=== PATIENT | female | born 1955 | race Asian ===

== ENCOUNTER 2024-04-25 09:37 | Emergency (ER) | payer MEDICARE, SELFPAY ==
--- NOTE | ~2024-04-25 | CT_ITS ---
EXAMINATION: CT ANGIOGRAM HEAD AND NECK CLINICAL INFORMATION: Left arm numbness x3-4 days, word finding difficulties. COMPARISON: None available. TECHNIQUE: Noncontrast axial imaging of the head was performed. This was followed by test bolus sequences and head and neck intravenous bolus administration 70 mL of Omnipaque 350. Helical imaging was performed in the axial plane from the aortic arch to the skull vertex. A [address] head was also obtained. The data was processed at the automation technologist's workstation for generation of MIP sequences. Angled MIPs and volume rendered reformatted images were also generated at an offline 3D workstation. Stenoses are assessed in accordance with NASCET criteria unless otherwise indicated. This CT examination was performed using dose optimization techniques as appropriate, variously including the following: *Automated exposure control *Adjustment of mA and/or kV according to patient size (this includes techniques or standardized protocols for targeted exams where dose is matched to indication/reason for exam; i.e. extremities or head) *Use of iterative reconstruction technique FINDINGS: NONCONTRAST HEAD CT: There is no evidence of intracranial hemorrhage or extra-axial fluid collection. There is no mass effect, or edema. No CT evidence of acute territorial infarct. Ventricles, sulci, and cisterns are normal in size and configuration for patient age. No hydrocephalus. No midline shift. Negative hyperdense MCA sign. Negative insular ribbon sign. No white matter abnormalities. Normal pituitary. Globes and orbital contents image normally. No extracranial soft tissue abnormalities. Moderate mucous retention cyst in the dependent right maxillary antrum. There is otherwise mild to moderate scattered mucosal thickening both maxillary sinuses and more significantly throughout both ethmoid sinuses. No suspicious bony abnormalities. There are no acute fractures evident. NECK CTA: -AORTIC ARCH: Normal in caliber. Normal three-vessel branching pattern. -GREAT VESSEL ORIGINS: Widely patent. Mild stenosis of the proximal left subclavian artery due to mixed plaque. -RIGHT COMMON CAROTID ARTERY: Normal in course and caliber to the bifurcation. -CERVICAL RIGHT INTERNAL CAROTID ARTERY: Normal opacification without focal stenosis or occlusion. -LEFT COMMON CAROTID ARTERY: Normal in course and caliber to the bifurcation. -CERVICAL LEFT INTERNAL CAROTID ARTERY: Normal opacification without focal stenosis or occlusion. -CERVICAL RIGHT VERTEBRAL ARTERY: Nondominant. Normal origin. Normal in course and caliber into the skull base. -CERVICAL LEFT VERTEBRAL ARTERY: Dominant. Mild stenosis at the origin due to soft plaque. Otherwise normal in course and caliber into the skull base. OTHER, SOFT TISSUES: -Normal thyroid. -No adenopathy or mass. -Superior mediastinal structures appear grossly normal. -No active disease in the lung apices. CTA OF THE BRAIN: -INTRACRANIAL INTERNAL CAROTID ARTERIES: Calcific atherosclerotic disease of the intracranial internal carotid arteries without occlusion or flow-limiting stenosis. -RIGHT ANTERIOR CEREBRAL ARTERY: Normal A1 segment. Normal arborization of the distal segments. -LEFT ANTERIOR CEREBRAL ARTERY: Normal A1 segment. Normal arborization of distal segments. -ANTERIOR COMMUNICATING ARTERY: Normal. -RIGHT MIDDLE CEREBRAL ARTERY: Normal M1 segment of the MCA without focal stenosis or occlusion. Normal arborization of the distal segments. -LEFT MIDDLE CEREBRAL ARTERY: Normal M1 segment of the MCA without focal stenosis or occlusion. Normal arborization of the distal segments. -RIGHT VERTEBRAL ARTERY V4: Normal in course and caliber. -LEFT VERTEBRAL ARTERY V4: Normal in course and caliber. -BASILAR ARTERY: Normal without focal stenosis or occlusion. Normal appearance of the proximal superior cerebellar arteries. Normal basilar tip. -RIGHT POSTERIOR CEREBRAL ARTERY: Normal P1 segment. Normal opacification of the distal MINE [employer]ODUCTION ENGINEER segments. -LEFT POSTERIOR CEREBRAL ARTERY: Normal P1 segment. Normal opacification of the distal MINE PRODUCTION ENGINEER segments. -POSTERIOR COMMUNICATING ARTERIES: Diminutive bilaterally but present. Normal opacification of the superior sagittal, straight, transverse, and sigmoid sinuses. No venous thrombosis. CT/CT angio head neck IMPRESSION: NONCONTRAST HEAD CT: 1. No intracranial hemorrhage, mass effect, or acute territorial infarct. 2. Bilateral maxillary and more significantly ethmoid paranasal sinus disease. CTA NECK: 1. No high-grade or flow limiting stenosis of the vertebral or internal carotid arteries. There is no vascular dissection. 2. There is a mild stenosis at the origin of the left vertebral artery. 3. There is a mild left subclavian artery stenosis after the origin. CTA HEAD: 1. There is no stenosis, dissection, occlusion, or aneurysm in the major intracranial arterial circulation. 2. There is no venous sinus thrombosis. Electronically signed by: Franco Smith MD 04/25/2024 01:56 PM EDT
--- NOTE | ~2024-04-25 | XR_ITS ---
EXAMINATION: XR CHEST CLINICAL INFORMATION: chest pain COMPARISON: None available. TECHNIQUE: 2 views of the chest were obtained. FINDINGS: No consolidation, pleural effusion or pneumothorax. Cardiomediastinal silhouette size is normal. Calcified plaque Arctic arch. Mild multilevel thoracic spondylosis. Calcifications overlapping the right lower soft tissue neck. XR/XR chest 2V IMPRESSION: No acute airspace disease. Electronically signed by: Tayo Mayes MD 04/25/2024 11:39 AM EDT
[2024-04-25 09:48] VITALS: BP 145/66; PULSE 90; RESP 19; TEMP 36.6; O2SAT 98; BMI 21.9
--- NOTE | 2024-04-25 10:36 | ECG_ITS ---
Test Reason : numbness Blood Pressure : */* mmHG Vent. Rate : 64 BPM Atrial Rate : 64 BPM P-R Int : 180 ms QRS Dur : 78 ms QT Int : 418 ms P-R-T Axes : 66 9 51 degrees QTcB Int : 431 ms Normal sinus rhythm Normal ECG No previous ECGs available Referred By: Paul Benjamin Electronically Signed By: SUKH FALL
--- NOTE | 2024-04-25 10:38 | ED.NEUROSD ---
HPI - Neuro Symptoms/Deficit General Chief Complaint: Stroke Stated Complaint: numbness arms legs multiple issues Time Seen by Provider: 04/25/24 10:23 Source: patient and family Mode of arrival: ambulatory Limitations: no limitations History of Present Illness HPI Narrative: 68 year old female PMH: Asthma hypothyroidism GERD who presents emergency room after going to urgent care for multiple complaints. Patient has a rapid almost pressured speech changing story and complaint quite often. Patient states she started with several days of some numbness along her lateral left arm as well as sometimes to her leg but she is still a bit ambulate and walk she will states she has word-finding difficulty but is speaking and fluently and rapidly at this time. Patient states she is normally from [place] but is here visiting her they have a long distance relationship where they live apart for 6 months at a time. She denies any falls or injuries she states at times she has chest pain at times she has abdominal pain the time she has headaches but denies having no symptoms at this time. Patient states she has chronic nausea but no vomiting she would eat dinner last night. She denied any breakfast went to an urgent care and was sent here for further evaluation Related Data Previous Rx's ?Medication ?Instructions ?Recorded acetaminophen 325 mg tablet 325 mg PO QID PRN pain #90 tabs 04/25/24 (Tylenol) benzonatate 100 mg capsule 100 mg PO BID PRN cough #20 caps 04/25/24 famotidine 20 mg tablet (Pepcid) 20 mg PO BID PRN abdominal 04/25/24 discomfort #60 tabs ondansetron 4 mg disintegrating 4 mg PO Q6H #14 tabs 04/25/24 tablet Allergies Allergy/AdvReac Type Severity Reaction Status Date / Time aspirin [ASA] Allergy Unknown Verified 04/25/24 09:53 naproxen [From Naprosyn] Allergy Unknown Verified 04/25/24 09:53 Review of Systems Review of Systems: Review of systems: General: Patient denies any fever chills recent illness or falls Musculoskeletal: Denies back pain or body aches or other injuries HEENT: denies headache, runny nose, ear pain Respiratory: Cough at night denies shortness of breath, Cardiovascular: chest pain no palpitations : denies dysuria, frequency Abdomen: nausea no vomiting denies abdominal pain Extremities: no swelling, no pain Skin: no diaphoresis Yes all other systems are reviewed and are negative [facility] Social History Social History Advance Directives: No Advance Directives Information Provided: Yes Physical Exam Vital Signs: Vital Signs: Last Vital Signs Temp 97.8 F 04/25/24 11:58 Pulse 64 04/25/24 11:58 Resp 18 04/25/24 11:58 BP 131/62 04/25/24 11:58 Pulse Ox 97 04/25/24 11:58 O2 Del Method Room Air 04/25/24 11:58 BMI result Body Mass Index 21.9 Neurological exam: CN II- XII tested. Patient is alert and oriented to person place and time. Patient has no dysphagia or dysarthia, denies good vision in all four vision peter no nystagmus on exam, good strength to upper and lower extremities with normal reflexes to brachioradialis, wrist, patella and achilles. Negative romberg, good finger to nose and heel to jaquez. Patient ambulate the room I had her walk on her heels and toes patient was able to do a squat without any difficulty General: Well-appearing well-nourished in no signs of distress HEENT: Normocephalic atraumatic Neck: No signs of JVD, no masses no tenderness or lymphadenopathy Cardiovascular: Regular rate and rhythm Respiratory: Clear to auscultation bilaterally Abdomen: Soft nontender no masses Extremities: Normal pedal pulses no signs of edema Skin: Dry warm no rashes Back: No tenderness full ROM Course Course Course Narrative: Patient is given GI cocktail as well as fluids and medications for pain. Patient states all the numbness has resolved she never had any word-finding difficulties and is feeling much better. She is okay with the plan to go home I will discharge home with a stent. Medications Administered Discontinued Medications Generic Name Dose Route Start Last Admin Trade Name Freq PRN Reason Stop Dose Admin Al Hydroxide/Mg Hydroxide 30 ml 04/25/24 10:35 04/25/24 11:09 Magnesium Hydrox/Alum Hydrox 30 Ml Oral.Susp PO 04/25/24 10:36 30 ml ONCE ONE Administration Famotidine 20 mg 04/25/24 10:35 04/25/24 11:09 Famotidine/Pf 20 Mg/2 Ml Vial IVPUSH 04/25/24 10:36 20 mg ONCE ONE Administration Sodium Chloride 1,000 mls @ 999 mls/hr 04/25/24 10:45 04/25/24 12:10 Ns IV 04/25/24 11:45 Infused .Q1H1M DEANN Infusion Iohexol 100 ml 04/25/24 12:59 04/25/24 13:01 Iohexol 350 Mg/Ml 100 Ml Infus..Btl IV 04/25/24 13:00 70 ml ONCE ONE Administration Medical Decision Making Medical Decision Making [facility] Narrative: Unfortunately patient has never been here before she does have history of hypothyroidism but has no symptoms consistent with that she is complaining of numbness to left side of her arm but on exam she has normal sensation normal strength she also complains of difficulty with speech but has normal speech speaking full sentences if anything the speech is rapid. Patient was able to squat and walk around the room I do not think she is having acute stroke with a plethora of symptoms the fact that is without for 4 days I will send the patient for a CT to make sure there was no subacute infarct on CT scan I will check labs I will get a noncontrast CT before getting the angiogram I will give the patient fluids check electrolytes and reassess. Differential Diagnosis Differential Diagnoses: The differential diagnosis associated with the presentation includes TIA CVA electrolyte abnormality weakness UTI COVID flu RSV body aches dehydration chronic nausea Lab Data [facility] Lab Attestation statement: I reviewed the patient's lab results. 04/25/24 11:02 04/25/24 11:02 Labs: Lab Results 04/25/24 04/25/24 Range/Units 11:02 11:49 WBC 3.9 L (4.8-10.8) X10*3/uL RBC 3.98 L (4.20-5.50) X10*6/uL Hgb 13.0 (12.0-16.0) g/dl Hct 38.9 (37.0-47.0) % MCV 97.7 (80.0-98.0) fL MCH 32.7 (27.0-33.0) pg MCHC 33.4 (31.0-35.0) g/dl RDW 12.5 (11.0-16.0) % Plt Count 151 L (160-400) X10*3/uL MPV 10.1 (9.4-12.3) fL Immature Gran % (Auto) 0.3 (0.0-0.4) % Neut % (Auto) 60.2 (45-73) % Lymph % (Auto) 25.0 (20-40) % Harmon % (Auto) 7.5 (2-11) % Eos % (Auto) 6.2 H (0-4) % Baso % (Auto) 0.8 (0-2) % Lymph # (Auto) 1.0 L (1.2-4.9) X10*3/uL Harmon # (Auto) 0.3 (0.1-1.2) X10*3/uL Eos # (Auto) 0.2 (0.0-0.4) X10*3/uL Baso # (Auto) 0.0 (0.0-0.2) X10*3/uL Abs Immat Gran (auto) 0.01 (0.00-0.03) X10*3/uL Absolute Neuts (auto) 2.3 (2.0-8.3) x10*3/uL Absolute Nucleated RBC 0.000 (0.0-0.012) X10*3/uL Nucleated RBC % (auto) 0.0 (0.0-0.2) /100WBC PT 11.6 (10.9-12.4) SEC INR 1.0 (0.9-1.1) APTT 32.9 (26.0-36.8) SEC Sodium 140 (135-145) mmol/L Potassium 4.2 (3.3-5.1) mmol/L Chloride 111 H (96-108) mmol/L Carbon Dioxide 23 (22-29) mmol/L Anion Gap 10 L (12-20) BUN 17 H (9-16) mg/dL Creatinine 0.62 (0.5-1.4) mg/dL Estim Creat Clear Calc 65.5 Estimated GFR > 60 Random Glucose 92 (60-115) mg/dL Calcium 8.7 (8.4-10.2) mg/dL Magnesium 2.2 (1.6-2.6) mg/dL Total Bilirubin 0.5 (0.0-1.0) mg/dL Direct Bilirubin 0.2 (0.0-0.5) mg/dL AST 30 (5-31) U/L ALT 21 (0-31) U/L Alkaline Phosphatase 51 (39-117) U/L Troponin I High Sens < 2.7 (<3.5-17.0) ng/L Total Protein 7.1 (6.5-8.0) g/dL Albumin 3.9 (3.5-5.0) g/dL Lipase 28 (8-78) U/L Urine Color Yellow Urine Appearance Clear Urine pH 7.0 (5.0-9.0) Ur Specific Gordon <= 1.005 (1.005-1.025) Urine Protein Negative (Neg-Trace) mg/dL Urine Glucose (UA) Negative (Negative) mg/dL Urine Ketones Negative (Negative) mg/dL Urine Blood Negative (Negative) Urine Nitrite Negative (Negative) Ur Leukocyte Esterase Negative (Negative) Influenza Type A (PCR) NEGATIVE (Negative) Influenza Type B (PCR) NEGATIVE (Negative) RSV RNA Qual (PCR) NEGATIVE (Negative) SARS-CoV-2 RNA (RT-PCR) NEGATIVE (Negative) Independent Interpretation I performed an independent interpretation of an: EKG Interpretation: Rate 64 normal sinus rhythm normal intervals no signs of ischemia no previous for comparison interpreted by me NIH Stroke Scale Internal: Initial- Upon Arrival Time: 10:41 Level of Consciousness: Alert Level of Consciousness Questions: Answers both questions correctly Level of Consciousness Commands: Performs both tasks correctly Best Gaze: Normal Visual: No visual loss Facial Palsy: Normal Motor Arm (Right): No drift Motor Arm (Left): No drift Motor Leg (Right): No drift Motor Leg (Left): No drift Limb Ataxia: Absent Sensory: Normal Best Language: No aphasia Dysarthia: Normal Extinction and Inattention: No abnormality Score: 0 Discharge Plan Discharge Clinical Impression: Paresthesia and pain of left extremity, Acid reflux, Cough Patient Disposition: Home, Self-Care Instructions: Chronic Cough (ED), Indigestion (ED), Paresthesia (ED) Additional Instructions: You were seen today for left arm and left leg numbness. You also seen for word-finding difficulties cough and epigastric pain. You had a complete workup including CT head and neck as well as labs swabs for COVID flu RSV which were all normal. Your symptoms did resolve with medications. I will send you home with similar medications if you have any other concerns please return to the ER. Prescriptions: New acetaminophen [Tylenol] 325 mg tablet 325 mg PO QID PRN (Reason: pain) Qty: 90 0RF famotidine [Pepcid] 20 mg tablet 20 mg PO BID PRN (Reason: abdominal discomfort) Qty: 60 0RF benzonatate 100 mg capsule 100 mg PO BID PRN (Reason: cough) Qty: 20 0RF ondansetron 4 mg tablet,disintegrating 4 mg PO Q6H Qty: 14 0RF Print Language: Liberian
[2024-04-25] MEDS: 0.9 % Sodium Chloride 1,000 ML 999 ML IV (11:06)
--- OUTSIDE RECORDS SUMMARY | 2024-04-25 11:07 | XMS_ITS | Referral Summary ---
Author Organization [facility] Address [address] [place] [address] Care Team Providers Care Letterpress Printing Machinist Name Role Phone Dada Dobbins MD Primary Care Provider [phone] Allergies Active Allergy Reactions Criticality Noted Date Comments Celecoxib Unknown 12/09/2010 Medications PREDNISONE PO take by mouth. Active VITAMIN B COMPLEX (B COMPLEX PO) take by mouth. Active multivitamin PO tablet take 1 Tablet by mouth daily. Active azathioprine (IMURAN) 50 mg PO tablet take 50 mg by mouth daily. Swallow whole. 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 REFERENCE RANGE: NOT DETECTED [facility] 09/10/2005 10:2 5 AM CDT 09/10/2005 10:25 AM CDT Juan C Orellana MD LAB BLOOD ORDERABLES F inal Result [facility] from Last 3 Months or Most Recently Relevant to Health Maintenance Insurance Care Teams Letterpress Printing Machinist Relationship Specialty Start Date End Date Dada Dobbins MD PCP - General 09/07/06
--- OUTSIDE RECORDS SUMMARY | 2024-04-25 11:07 | XMS_ITS | Clinical Summary ---
Author Organization [facility] Address [address] [place] [address] Care Team Providers Care Speech Pathology Supervisor Name Role Phone Pcp Outside [facility], Unknown Primary Care Provider U navailable Allergies Active Allergy Reactions Criticality Noted Date Comments Aspirin Palpitations High 05/05/2011 Celecoxib RASH High 08/21/2016 Clarithromycin RASH High 02/21/2016 Codeine GI UPSET High 08/21/2016 Medications Medication Sig Dispensed Refills Start Date End Date Status levothyroxine (SYNTHROID, LEVOTHROID) 75 MCG tablet TAKE 1 TABLET BY MOUTH DAILY 90 tablet 1 02/11/2018 Active Immunizations Name Administration Dates Next Due Influenza, split virus, quadrivalent, PF 016,12/19/2014 Social History Tobacco Use Types Packs/Day Years Used Date Smoking Tobacco: Never Assessed Inadequate Housing Answer Date Recorded Social Determinants: Housing (Overall Score Help er) 0 11/20/2020 Sex and Gender Information Value Date Recorded Sex Assigned at Not on file Gender Identity Not on file Sexual Orientation Not on file Job Start Date Occupation Industry Not on file Not on file Not on file Last Filed Vital Signs Vital Sign Reading Time Taken Comments Blood Pressure 131/66 05/21/2021 11:08 AM CDT Pulse 68 05/21/2021 11:08 AM CDT Temperature 36.5 ??C (97.7 ??F) 05/21/2021 9:39 AM CD T Respiratory Rate 15 05/21/2021 11:08 AM CDT Oxygen Saturation 97% 05/21/2021 11:08 AM CDT Inhaled Oxygen Concentration - - Weight 47.8 kg (105 lb 6.1 oz) 05/21/2021 9:39 A M CDT Height 157.5 cm (5' 2 ) 05/21/2021 9:39 AM CDT Body Mass Index 19.27 05/21/2021 9:39 AM CDT Plan of Treatment Health Maintenance Due Date Last Done Comments Depression Screening 1967 CT Colonography 06/08/2000 Cologuard 06/08/2000 Colonoscopy 06/08/2000 Colorectal Cancer Screening 06/08/2000 Fecal Occult Blood 06/08/2000 Sigmoidoscopy 06/08/2000 Hepatitis C Screening 06/08/2006 Respiratory Syncytial Virus (RSV) Vaccine 60+ (1 - Risk 60-74 years 1-dose series) 2015 Osteoporosis Screening 06/08/2020 Traditional Medicare- Medicare Wellness Visit 11/16/2020 Breast Cancer Screening 07/18/2022 07/18/2020, 01/27 COVID-19 Vaccine ( season) 2023 05/08/2020 Influenza Vaccine (#1) 2023 0, 12/28/2018, 11/28/2015, Additional history exists DTaP/Tdap/Td Vaccine (2 - Td or Tdap) 10/26/2032 10/26/2022 Shingles Vaccine Completed 01/25/2020, 10/19/2019 Pneumococcal Vaccine 50+ Completed 07/08/2021, 06/17 HPV Vaccine Aged Out No longer eligi ble based on patient's age to complete this topic Hepatitis A Vaccine Aged Out No longe r eligible based on patient's age to complete this topic Hepatitis B Vaccine (For Physician/APC Discussion) Aged Out No longer elig ible based on patient's age to complete this topic Meningococcal Serogroup B Vaccine Aged Out No longer eligible based on patient's age to complete this topic Meningococcal Vaccine Aged Out No therese anu eligible based on patient's age to complete this topic Care Teams Speech Pathology Supervisor Relationship Specialty Start Date End Date Pcp Outside [facility], Unknown NO KNOWN ADDRESS ON FILE PCP - General 11/26/21
--- OUTSIDE RECORDS SUMMARY | 2024-04-25 11:07 | XMS_ITS | Clinical Summary ---
Author Organization [facility] Address [address] [place] [address] Care Team Providers Care Concrete Pourer Name Role Phone Dada Dobbins MD Primary Care Provider [phone] Allergies Active Allergy Reactions Criticality Noted Date Comments Celecoxib Unknown 12/09/2010 Medications PREDNISONE PO take by mouth. Active VITAMIN B COMPLEX (B COMPLEX PO) take by mouth. Active multivitamin PO tablet take 1 Tablet by mouth daily. Active azathioprine (IMURAN) 50 mg PO tablet take 50 mg by mouth daily. Swallow whole. Active Family History Medical History Relation Comments Gastrointestinal Brother 2 gallstones Diabetes Father Cancer Maternal Grandmother GI ? 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 Gender Identity Not on file Sexual Orientation Not on file Plan of Treatment Health Maintenance Due Date Last Done Comments CT Colonography 1955 FIT-DNA Test 1955 Fecal Occult Blood Test Screening 1955 Sigmoidoscopy 1955 DTaP,Tdap and Td Vaccines (1 - Tdap) 06/08/1976 Colonoscopy 06/08/1980 Colorectal Cancer Screening 06/08/1980 Screening Mammogram 06/08/1985 Pneumococcal 65+ (1 of 1 - PCV) 06/08/2005 Zoster Vaccine Series (1 of 2) 06/08/2005 DEXA Scan 06/08/2020 Influenza Vaccine (#1) 2023 COVID-19 Vaccine (1 - 2023-2 5 season) 2023 Hepatitis C Screening Completed 09/10/2005 Meningococcal B Aged Out No longer el igible based on patient's age to complete this topic Procedures Procedure Name Priority Date/Time Associated Diagnosis Comments HEPATITIS C VIRUS ANTIBODY 09/10/2005 10:25 AM CDT from Last 3 Months or Most Recently Relevant to Health Maintenance Results * HEPATITIS C VIRUS ANTIBODY (09/10/2005 10:25 AM CDT) HEP C AB NOT DETECTED ? REFERENCE RANGE: NOT DETECTED [facility] 09/10/2005 10:2 5 AM CDT 09/10/2005 10:25 AM CDT Juan C Orellana MD LAB BLOOD ORDERABLES F inal Result [facility] from Last 3 Months or Most Recently Relevant to Health Maintenance Insurance OUT STATE Care Teams Concrete Pourer Relationship Specialty Start Date End Date Dada Dobbins MD PCP - General 09/07/06
--- OUTSIDE RECORDS SUMMARY | 2024-04-25 11:07 | XMS_ITS | Referral Summary ---
Author Organization [facility] Address [address] [place] [address] Care Team Providers Care Corrections Unit Supervisor Name Role Phone Pcp Outside [facility], Unknown Primary Care Provider U navailable Allergies [...] 05/21/2021 9:39 AM CDT Plan of Treatment Not on file Care Teams Corrections Unit Supervisor Relationship Specialty Start Date End Date Pcp Outside [facility], Unknown NO KNOWN ADDRESS ON FILE PCP - General 11/26/21
--- OUTSIDE RECORDS SUMMARY | 2024-04-25 11:07 | XMS_ITS | Encounter Summary ---
Author Organization [facility] Address [address] [place] [address] Care Team Providers Care Assisted Living Care Manager Name Role Phone Mya Aburto MD Primary Care Provider [phone] Encounter Details Date Type Department Care Team (Latest Contact Info) Description 12/30/2016 Lab Requisition [facility] [address] [facility] [address] [place] [address] Citlaly Calderón MD [address] [facility] [address] [place] [phone] Encounter for screening for human papillomavirus (HPV); Encounter for screening for malignant neoplasm of cervix Social History Tobacco Use Types Packs/Day Years Used Date Smoking Tobacco: Never Alcohol Use Standard Drinks/Week Comments No 0 (1 standard drink = 0.6 oz pur e alcohol) Comments Unknown Sex and Gender Information Value Date Recorded Sex Assigned at Not on file Legal Sex Female 11:03 PM BELT NOTCHER Gender Identity Not on file Sexual Orientation Not on file documented as of this encounter Plan of Treatment Upcoming Encounters Date Type Department Care Team (Late st Contact Info) Description 07/05/2024 8:40 AM CDT Office Visit Primary Care [address] [facility] [place] [address] Mya Aburto MD [address] [facility] [address] [place] [address] 6 mo follow up rescheduled documented as of this encounter Procedures Procedure Name Priority Date/Time Associated Diagnosis Comments HPV HIGH RISK (NONRPTABLE) Routine 12/30/2016 10:02 AM BELT NOTCHER Encounter for screening for malignant neoplasm of cervix Encounter for screening for human papillomavirus (HPV) THINPREP AND HPV Routine 12/30/2016 10:0 2 AM BELT NOTCHER Encounter for screening for malignant neoplasm of cervix Encounter for screening for human papillomavirus (HPV) documented in this encounter Results * HPV High Risk (12/30/2016 10:02 AM BELT NOTCHER) HPV High Risk HPV RNA not detected HPV RNA not detected 01/01/2017 8:07 AM BELT NOTCHER [facility] Comment:Negative for HPV typ es 16, 18, 31, 33, 35, 39, 45, 51, 52, 56, 58, 59, 66, and 68. Specimen from genital system (specimen) Endocervical structure / Unknown 12/30/2016 10:02 AM BELT NOTCHER 12/31/2016 1:20 PM BELT NOTCHER us Citlaly Calderón MD MICROBIOLOGY - GENERAL ORDERAB LES Final Result [facility] [address] [place] [address] * ThinPrep and HPV (12/30/2016 10:02 AM BELT NOTCHER) Case Report Gynecologic Cytology Report ? Case: [id number] ? Authorizing Provider: ??Citlaly Calderón MD ? Collected: ? 12/30/2016 10:02 AM ? First Screen: ?Arixa Byers ?Received: ?12/31/2016 01:20 PM ? Specimen: ?Liquid-based pap, screening, Cervix, Endocervical ? 01/08/2017 3:08 PM [facility] Interpretation Negative for intraepithelial lesion or malignancy; atrophy 01/08/2017 3:08 PM [facility] Specimen Adequacy Satisfactory for evaluation, endocervical/gomez sformation zone component present 01/08/2017 3:08 PM [facility] HPV Result HPV RNA not detected 01/08/2017 3:08 PM [facility] Comment:NEGATIVE for HPV hig h risk types 16, 18, 31, 33, 35, 39, 45, 51, 52, 56, 58, 59, 66, and 68. LMP MENOPAUSAL 01/08/2017 3:08 PM [facility] Additional Information The PAP Test is not a diagnostic procedure and should not be used as the only method to detect cervical cancer or its precursors. It is only a screening procedure. Both false negative and false positive results have been experienced. 01/08/2017 3:08 PM [facility] Embedded Images 3:08 PM [facility] Specimen from genital system (specimen) Endocervical structure / Unknown 12/30/2016 10:02 AM BELT NOTCHER 12/31/2016 1:20 PM BELT NOTCHER us Citlaly Calderón MD PATHOLOGY/CYTOLOGY ORDERABLES Final Result [facility] [address] [place] [address] documented in this encounter Visit Diagnoses Diagnosis Encounter for screening for human papillomavirus (HPV) Encounter for screening for malignant neoplasm of cervix documented in this encounter Additional Health Concerns Assessment Noted Time A fall risk assessment has been complete d for the patient 02/21/2016 2:29 PM BELT NOTCHER documented as of this encounter Care Teams Assisted Living Care Manager Relationship Specialty Start Date End Date Mya Aburto MD [address] [place] [id number] PCP - General Internal Medicine 03/01/19 documented as of this encounter
--- OUTSIDE RECORDS SUMMARY | 2024-04-25 11:07 | XMS_ITS | Clinical Summary ---
Author Organization [facility] Address [address] [place] [address] Care Team Providers Care Creative Manager Name Role Phone Mya Aburto MD Primary Care Provider [phone] Allergies Active Allergy Reactions Criticality Noted Date Comments Aspirin Palpitations High 08/21/2016 Clarithromycin Rash High 02/21/2016 Celecoxib Rash High 08/21/2016 Codeine GI Intolerance High 08/21/2016 Medications * This document contains information received from the source organization and may not represent a complete record from that organization. multivitamin (THERAGRAN) tab Take 1 tablet by mouth. Active albuterol (PROVENTIL HFA/VENTOLIN HFA/PRO AIR) 90 mcg/actuation inhaler INHALE 1 TO 2 PUFFS BY MOUTH UP TO FOUR TIMES DAILY NEEDED 12/29/2022 Active famotidine (PEPCID) 40 MG tabletIndication s:Encounter for medication refill,Gastroeso phageal reflux disease, unspecified whether esophagitis present Take 1 tablet (40 mg total) by mouth every evening. 30 tablet 06/30/2023 Active sucralfate (CARAFATE) 1 gram tablet TAKE 1 TABLET BY MOUTH THREE TIMES DAILY BEFORE MEALS 07/16/2023 Active levothyroxine (SYNTHROID) 50 MCG tabletIndication s:Hypothyroidism , unspecified type TAKE 1 TABLET BY MOUTH EVERY DAY 90 tablet 2 11/26/2023 Active Active Problems Problem Noted Date Diagnosed Date Functional nausea 01/16/2023 Word finding difficulty 01/16/2023 Osteopenia 10/14/2019 Mild persistent asthma without complication 02/16 Left hand paresthesia 01/02/2019 Chronic cough 01/02/2019 Hypothyroidism 12/28/2018 Gastroesophageal reflux disease 12/28/2018 Autoimmune hepatitis 10/12/2008 Overview (09/09/2023): Fibroscan 2023 no steatosis, no fibrosis Atypical chest pain 10/12/2008 Dysphagia 10/12/2008 Immunizations Name Administration Dates Next Due Fluarix Quadrivalent 0.5ml Intramuscular Suspens ion 11/28/2015,12/19/2014 Influenza Quadrivalent (IM) PF (FLUZONE/FLUARIX) 11/24/2019,12/28/2018 Influenza Trivalent w/Preservative (IM) 12/13/19 10 [employer] SARS-COVID Vaccine Ages 12+ (With Diluent ) 05/08/2020 Pneumococcal Conjugate 13-Valent (PREVNAR-13) Pneumococcal Polysaccharide 23-Valent (PNEUMOVAX ) 07/08/2021 Tdap (ADACEL/BOOSTRIX) 10/26/2022 Zoster/Shingles, 2 Dose (IM) Recombinant (SHINGR IX) 01/25/2020,10/19/2019 Family History Medical History Relation Comments Diabetes Brother 1 Diabetes Brother 2 Diabetes Father Diabetes Mother Hypothyroidism Mother Breast cancer Neg Hx Ovarian cancer Neg Hx Relation Status Comments Brother 1 Alive Brother 2 Alive Daughter Alive Father Mother Social History Tobacco Use Types Packs/Day Years Used Date Smoking Tobacco: Never Smokeless Tobacco: Never Tobacco Cessation:Counseling Given: Not Answered Alcohol Use Standard Drinks/Week Comments No 0 (1 standard drink = 0.6 oz pur e alcohol) PHQ-2 Answer Date Recorded PHQ-2 Score 0 10/14/2023 Hunger Vital Sign Answer Date Recorded Within the past 12 months, y ou worried that your food would run out before you got the money to buy more. Never true 10/14/19 24 Within the past 12 months, t he food you bought just didn't last and you didn't have money to get more. Never true 10/14/2023 PRAPARE - Transportation Answer Date Re corded In the past 12 months, has l ack of transportation kept you from medical appointments or from getting medications? No 09/17 In the past 12 months, has l ack of transportation kept you from meetings, work, or from getting things needed for daily living? 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 Gender Identity Not on file Sexual Orientation Not on file Occupation Industry Job Start Date Job End Date Retired Not on file Not on file Not on file Last Filed Vital Signs Vital Sign Reading Time Taken Comments Blood Pressure 90/52 10/14/2023 9:08 AM CDT Pulse 76 10/14/2023 9:08 AM CDT Temperature 35.9 ??C (96.6 ??F) 10/14/2023 9:08 AM CD T Respiratory Rate 18 06/30/2023 1:32 PM CDT Oxygen Saturation 96% 10/14/2023 9:08 AM CDT Inhaled Oxygen Concentration - - Weight 50.3 kg (111 lb) 10/15/2023 10:55 AM CDT Height 62 cm (2' 0.41 ) 10/15/2023 10:55 AM CDT Body Mass Index 130.99 10/15/2023 10:55 AM CDT Plan of Treatment Upcoming Encounters Date Type Department Care Team (Late st Contact Info) Description 07/05/2024 8:40 AM CDT Office Visit Primary Care [phone] [facility] [place] [address] Mya Aburto MD [address] [facility] [address] [place] [address] 6 mo follow up rescheduled Health Maintenance Due Date Last Done Comments FIT / gFOBT Colorectal Cancer Screening 1955 Flexible Sigmoidoscopy 1955 Annual Preventative Exam with Gyne 1971 Hepatitis A Vaccines (1 of 2 - Risk 2-dose series) 06/08/1974 FIT-DNA (Cologuard) 10/24/2022 10/25/2019, 0 Influenza Vaccine (#1) 2023 3, 12/04/2021, 10/31/2020, Additional history exists COVID-19 Vaccine ( season) 2023 01/27/2023, 12/24/2021, 12/03/2020, Additional history exists Colonoscopy 03/19/2024 03/19/2021, 11/09/2019 Colorectal Cancer Screening 03/19/2024 DXA Scan 09/26/2024 09/26/2022, 0802/2022, 07/18/2020, Additional history exists Glaucoma Screening 10/01/2024 10/02/2023 Annual Wellness Exam with PCP ([facility]) 10/13/2024 10/14/2023 Mammogram 10/14/2025 10/15/2023, 0603/2020, 07/18/2020, Additional history exists CT Colonography 03/19/2026 03/19/2021 DTaP,Tdap,and Td Vaccines (2 - Td or Tdap) 10/26/2032 10/26/2022 Hepatitis C Screening Completed 09/10/2005 Pap Smear Discontinued 12/30/2016 Zoster Vaccine (Shingles) Completed 01/25/2020, 03/2019 Pneumococcal Vaccine: 50+ Years Completed 07/08/2021, 07/06/2020 Hepatitis B Vaccines Discontinued Meningococcal Vaccine Aged Out No therese anu eligible based on patient's age to complete this topic Procedures Procedure Name Priority Date/Time Associated Diagnosis Comments ERIC SCREENING MAMMOGRAM BILATERAL 3D Routine 10/15/2023 11:09 AM CDT Breast cancer screening by mammogram DEXA BONE DENSITY STUDY Routine 09/26/2022 8:56 AM CDT Post-menopausal HPV HIGH RISK (NONRPTABLE) Routine 12/30/2016 10:02 AM [employer]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 Leena Neris Malhotra October 15, 2023 ??[facility] [address] [address] PROCEDURE: [facility] Screening Mammogram Bilateral 3D PERFORMING TECHNOLOGIST: Precious Thomason (R)(M) REASON FOR EXAM: Breast cancer screening by mammogram INDICATIONS FOR EXAM: Screening, asymptomatic HISTORY: Patient is 68 y.o. No relevant breast-related medical history has been documented for this patient in [place]. No relevant hormone history has been documented for this patient. No relevant breast-related surgical history has been documented for this patient in [place]. No relevant breast-related family history has been documented for this patient in [place]. BREAST COMPOSITION: (B) Average - The breasts have scattered areas of fibroglandular density. FINDINGS: Compared to: 07/18/2020 [facility] Screening Mammogram Bilateral 3D and 01/27/2017 *[facility] 3D Screening Mammogram Bilateral STANDARD VIEWS: Bilateral 2D CC and MLO Bilateral 3D CC and MLO No suspicious mass, clusters of calcification, or non-procedural architectural distortion. ?? IMPRESSION: No mammographic evidence of malignancy. ??No significant changes when compared with prior studies. ACR BI-RADS?? ATLAS CATEGORY: ??Overall: 1 - Negative RECOMMENDATION: ? - Routine bilateral screening mammogram in 1 year ?? INTERPRETING PHYSICIAN: Conrad Kessler MD Mammogram images were analyzed by a computer-aided detection system and further reviewed by a board certified radiologist. ??Computer-aided detection was utilized by the radiologist in the interpretation of this examination. A negative mammogram should not delay biopsy of a dominant or clinically suspicious mass. ??10-15% of cancers are not identified by mammography. ??A negative report may reinforce clinical impression. ??False positive reports average 6-10%. A summary of written results will be sent or given to the patient. Narrative 10/15/2023 11:12 AM CDT Table Mya Aburto MD IMG MAMMOGRAPHY ORDERABLES Final Result * Dexa Bone Density Study (09/26/2022 8:56 AM CDT) Anatomical Region Laterality Modality Radiographic Lili ging 09/26/2022 9:20 AM CDT Impressions 09/26/2022 9:23 AM CDT Osteopenia of the lumbar spine 2.9% worse. Osteopenia left femoral neck 5.2% worse than the total mean Bone microarchitecture based on TBS measurement is partially degraded FRAX ANALYSIS adjusted for TBS: The 10 year risk of major osteoporotic fracture is 13.8%. The 10 year risk of a hip fracture is 2.2%. Narrative 09/26/2022 9:23 AM CDT INDICATION: Postmenopausal. PROCEDURE: Your patient was thoroughly evaluated by [employer] dual energy x-ray absorptiometry of the lumbar spine and hip as well as evaluation of risk factors. COMPARISON: ??07/18/2020. FINDINGS: Bone Density L1-L4: BMD: 0.92 g/cm2, T-Score: -2.1 ? Trabecular Bone Score L1-L4: TBS: 1.29 , T Score: Not applicable Bone Density Femoral Neck: Left ? BMD: 0.82 g/cm2, T-Score: -1.5 ? Bone Density Bilateral Hip Total Mean: BMD: 0.84 g/cm2, T-Score: -1.3 ? AP imaging of the lumbar spine shows no definite compression fracture. (Subtle fractures may not be visible on this exam and this study should not be meant to exclude the possibility of fracture. If there is clinical suspicion of fracture additional imaging is necessary.) Because of precision errors on a repeat DXA, only losses > 5% should be considered statistically significant for the purpose of changing treatment. NOTE: 0-1 ?Std dev. Below young adults = Normal bone mass 1-2.5 Std dev. Below young adults = Osteopenia At or >2.5 ??Std dev. Below young adults = Osteoporosis At or >2.5 ??Std dev. Below young adults and with known fractures = Severe osteoporosis TBS Score: 1.35 or greater: Normal Greater than 1.2 to less than 1.35: Partially Degraded At or below 1.2: Degraded Procedure Note Fidencio Garay MD - 09/26/2022 INDICATION: Postmenopausal. PROCEDURE: Your patient was thoroughly evaluated by [employer] dual energy x-ray absorptiometry of the lumbar spine and hip as well as evaluation of risk factors. COMPARISON: 07/18/2020. FINDINGS: Bone Density L1-L4: BMD: 0.92 g/cm2, T-Score: -2.1 Trabecular Bone Score L1-L4: TBS: 1.29 , T Score: Not applicable Bone Density Femoral Neck: Left BMD: 0.82 g/cm2, T-Score: -1.5 Bone Density Bilateral Hip Total Mean: BMD: 0.84 g/cm2, T-Score: -1.3 AP imaging of the lumbar spine shows no definite compression fracture. (Subtle fractures may not be visible on this exam and this study shouldnot be meant to exclude the possibility of fracture. If there is clinical suspicion of fracture additional imaging is necessary.) Because of precision errors on a repeat DXA, only losses > 5% should be considered statistically significant for the purpose of changingtreatment. NOTE: 0-1 Std dev. Below young adults = Normal bone mass 1-2.5 Std dev. Below young adults = Osteopenia At or >2.5 Std dev. Below young adults = Osteoporosis At or >2.5 Std dev. Below young adults and with known fractures =Severe osteoporosis TBS Score: 1.35 or greater: Normal Greater than 1.2 to less than 1.35: Partially Degraded At or below 1.2: Degraded IMPRESSION: Osteopenia of the lumbar spine 2.9% worse. Osteopenia left femoral neck 5.2% worse than the total mean Bone microarchitecture based on TBS measurement is partially degraded FRAX ANALYSIS adjusted for TBS: The 10 year risk of major osteoporotic fracture is 13.8%. The 10 year risk of a hip fracture is 2.2%. Mya Aburto MD [facility] DXA ORDERABLES Final Result * HPV High Risk (12/30/2016 10:02 AM [facility]) HPV High Risk HPV RNA not detected HPV RNA not detected 01/01/2017 8:07 AM [employer] SALESPERSON [facility] Comment:Negative for HPV typ es 16, 18, 31, 33, 35, 39, 45, 51, 52, 56, 58, 59, 66, and 68. Specimen from genital system (specimen) Endocervical structure / Unknown 12/30/2016 10:02 AM [employer] SALESPERSON 12/31/2016 1:20 PM [employer] SALESPERSON Citlaly Calderón MD MICROBIOLOGY - GENERAL ORDERAB LES Final Result [facility] [address] 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
[2024-04-25] MEDS: Famotidine/PF 20 MG/2 ML VIAL IVPUSH (11:09)
[2024-04-25] MEDS: Magnesium Hydrox/Alum Hydrox 30 ML ORAL.SUSP PO (11:09)
[2024-04-25 11:13] LABS: MANUAL DIFF FLAG NO
[2024-04-25 11:14] LABS: Basophils Percent Auto 0.8 % (0-2); Eosinophils Absolute Auto 0.2 X10*3/uL (0.0-0.4); Eosinophils Percent Auto 6.2 % (0-4); Hematocrit 38.9 % (37.0-47.0); Imm Gran Abs Auto 0.01 X10*3/uL (0.00-0.03); Imm Gran Pct Auto 0.3 % (0.0-0.4); Mean Corpuscular HGB Conc 33.4 g/dl (31.0-35.0); Mean Corpuscular Hemoglobin 32.7 pg (27.0-33.0); Mean Corpuscular Volume 97.7 fL (80.0-98.0); Mean Platelet Volume 10.1 fL (9.4-12.3); Monocytes Absolute Auto 0.3 X10*3/uL (0.1-1.2); Monocytes Percent Auto 7.5 % (2-11); Neutrophils Absolute Auto 2.3 x10*3/uL (2.0-8.3); Neutrophils Percent Auto 60.2 % (45-73); Platelet Count 151 X10*3/uL (160-400); Red Blood Count 3.98 X10*6/uL (4.20-5.50); Red Cell Distribution Width 12.5 % (11.0-16.0); White Blood Count 3.9 X10*3/uL (4.8-10.8)
[2024-04-25 11:28] LABS: Prothrombin Time 11.6 SEC (10.9-12.4)
[2024-04-25 11:31] LABS: Partial Thromboplastin Time 32.9 SEC (26.0-36.8)
[2024-04-25 11:35] LABS: Alanine Aminotransferase 21 U/L (0-31); Albumin Level 3.9 g/dL (3.5-5.0); Alkaline Phosphatase 51 U/L (39-117); Anion Gap 10 (12-20); Aspartate Amino Transferase 30 U/L (5-31); Bilirubin Direct 0.2 mg/dL (0.0-0.5); Bilirubin Total 0.5 mg/dL (0.0-1.0); Blood Urea Nitrogen 17 mg/dL (9-16); Calcium 8.7 mg/dL (8.4-10.2); Carbon Dioxide 23 mmol/L (22-29); Chloride 111 mmol/L (96-108); Creatinine Clr Calc Pharmacy 65.5; Estimated Glomerular Filt Rate > 60; Glucose Random 92 mg/dL (60-115); Lipase 28 U/L (8-78); Magnesium 2.2 mg/dL (1.6-2.6); Potassium 4.2 mmol/L (3.3-5.1); Sodium 140 mmol/L (135-145); Total Protein 7.1 g/dL (6.5-8.0)
[2024-04-25 11:40] LABS: Troponin-I High Sensitivity < 2.7 ng/L (<3.5-17.0)
[2024-04-25 11:58] VITALS: BP 131/62; PULSE 64; RESP 18; TEMP 36.6; O2SAT 97
[2024-04-25 11:58] LABS: Appearance Urine Clear; Color Urine Yellow; Glucose Urine UA Negative (Negative); Leukocyte Esterase Urine Negative (Negative); Nitrite Urine Negative (Negative); Specific Gravity - Urine <= 1.005 (1.005-1.025); Urine Blood Negative (Negative); Urine Ketones Negative (Negative); Urine Protein Negative (Neg-Trace)
[2024-04-25 12:16] LABS: Influenza A PCR NEGATIVE (Negative); Influenza B PCR NEGATIVE (Negative); Resp Syncy Virus RNA Qual PCR NEGATIVE (Negative); SARS COV2 PCR INHOUSE NEGATIVE (Negative)
[2024-04-25] MEDS: iohexoL 350 MG/ML 100 ML INFUS..BTL IV (13:01)
[2024-04-25 14:58] VITALS: BP 119/58; PULSE 74; RESP 18; TEMP 36.6; O2SAT 95
--- NOTE | 2024-04-25 14:58 | PC.NURSE ---
Pt. requesting a refill of Albuterol inhaler to be sent to pharmacy. Anjel Benjamin DO notified and order placed.
== END 2024-04-25 14:59 | disposition home or self-care (01) ==
PROVIDERS: Emergency Provider Student in an Organized Health Care Education/Training Program
DX: R20.2 Paresthesia of skin (principal); M79.602 Pain in left arm; R29.700 NIHSS score 0; K21.9 Gastro-esophageal reflux disease without esophagitis; R05.9 Cough, unspecified; Z03.818 Encounter for observation for suspected exposure to other biological agents ruled out
CPT/HCPCS: 0241U; 70496; 70498; 71046; 80048; 80076; 81003; 83690; 83735; 84484; 85025; 85610; 85730; 93005; 96361; 96374; 99284; Q9967

== ENCOUNTER → 2024-04-25 10:36 | Outpatient (BNV) | payer MEDICARE, SELFPAY | PROVIDERS: Emergency Provider Student in an Organized Health Care Education/Training Program; Visit Provider Radiology Diagnostic Radiology | DX: J34.89 Other specified disorders of nose and nasal sinuses (principal); R07.9 Chest pain, unspecified | CPT/HCPCS: 70496; 70498; 71046 ==

== ENCOUNTER → 2024-04-25 10:36 | Outpatient (BNV) | payer MEDICARE, SELFPAY | PROVIDERS: Emergency Provider Student in an Organized Health Care Education/Training Program; Visit Provider Internal Medicine | DX: R07.9 Chest pain, unspecified (principal); R20.2 Paresthesia of skin | CPT/HCPCS: 93010 ==